=== PATIENT | male | born 1990 | race African-American/Black ===

== ENCOUNTER 2016-06-20 18:45 | Emergency (ER) | payer SELFPAY ==
[~2016-06-20] VITALS: Ht 175.3 cm; Wt 129.3 kg
[2016-06-20 19:30] VITALS: BP 150/81
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
[2016-06-20] MEDS ORDERED: CYCL10TA2 PO (20:11)
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
== END 2016-06-20 20:19 | disposition home or self-care (01) ==
LOC: ER 18:45
DX: R68.84 Jaw pain (principal); Y08.89XA Assault by other specified means, initial encounter; Y93.89 Activity, other specified; Y99.8 Other external cause status; Y92.89 Other specified places as the place of occurrence of the external cause
CPT/HCPCS: 70450; 70486; 99284-25

== ENCOUNTER 2018-01-21 11:00 | Emergency (ER) | payer SELFPAY ==
[~2018-01-21] VITALS: Ht 172.7 cm; Wt 149.7 kg
[~2018-01-21 11:00] MED LIST: CYCL10TA2 PO; IBUP-1007 PO
[2018-01-21 11:29] VITALS: BP 158/89
[2018-01-21] MEDS ORDERED: ORPHENADRINE CITRATE 60 MG/2 ML VIAL. IM ONE (12:00)
[2018-01-21] MEDS ORDERED: KETOROLAC 30 MG/ML VIAL. IM ONE (12:00)
[2018-01-21] MEDS ORDERED: NAPR-514 PO (12:54)
[2018-01-21] MEDS ORDERED: CYCL10TA2 PO (12:54)
--- NOTE | 2018-01-21 12:54 | PHYS DOC ---
Past Medical History Past Medical History: Hypertension Past Surgical History: No Surgical History Additional Past Surgical Histo: "Ears" Alcohol Use: None Drug Use: None Adult General Chief Complaint Chief Complaint: LOWER BACK PAIN OR INJURY HPI HPI Patient is a 27 year old male who presents to the emergency room with complaints of low back pain and neck pain for the last 2 days. He states he has been doing a lot of heavy lifting at work. He rates his pain as 8 or 9 out of 10 on the pain scale. He denies any numbness, tingling, weakness, or any known injury. He states he has a history of chronic back pain and he is not taking any medications. He denies any allergies to medications. Review of Systems Review of Systems Constitutional: Denies fever or chills [] Respiratory: Denies cough or shortness of breath [] Musculoskeletal: Reports low back pain and neck pain, denies any known injury or joint pain [] Integument: Denies rash or skin lesions [] Neurologic: Denies headache, focal weakness or sensory changes [] Current Medications Current Medications Current Medications Medications (Trade) Dose Ordered Sig/Christiana Start Time Stop Time Status Last Admin Dose Admin Ketorolac Tromethamine (Toradol 30mg Vial) 30 mg 1X ONCE 01/21/18 12:00 01/21/18 12:01 DC 01/21/18 12:14 30 MG Orphenadrine Citrate (Norflex) 60 mg 1X ONCE 01/21/18 12:00 01/21/18 12:01 DC 01/21/18 12:12 60 MG Allergies Allergies Allergies Coded Allergies Type Severity Reaction Last Updated Verified No Known Drug Allergies 06/09/13 No Physical Exam Physical Exam Constitutional: Well developed, well nourished, no acute distress, non-toxic appearance, obese [] HENT: Normocephalic, atraumatic, bilateral external ears normal, nose normal. [] Eyes: PERRLA, conjunctiva normal, no discharge. [] Neck: Normal range of motion, no bony tenderness, supple, no stridor, chin to chest normal. [] Skin: Warm, dry, no erythema, no rash. [] Back: No bony tenderness, no CVA tenderness. [] Extremities: No tenderness, no cyanosis, no clubbing, ROM intact, no edema. [] Neurologic: Alert and oriented X 3, normal motor function, normal sensory function, no focal deficits noted. [] Psychologic: Affect normal, judgement normal, mood normal. [] Current Patient Data Vital Signs Vital Signs Date Time Temp Pulse Resp B/P (MAP) Pulse Ox O2 Delivery O2 Flow Rate FiO2 01/21/18 11:29 98.1 100 20 158/89 (112) 96 Room Air 98.1 EKG EKG [] Radiology/Procedures Radiology/Procedures [] Course & Med Decision Making Course & Med Decision Making Pertinent Labs and Imaging studies reviewed. (See chart for details) Patient is a 27-year-old male who the emergency room today with complaints of low back pain and neck tightness after lifting heavy objects at work over the last 2 days. VSS, patient was given 60 mg of orphenadrine IM and 30 mg of Toradol IM. He reported relief of his symptoms after these medications. Prescriptions for naproxen and Flexeril were written. Patient verbalized an understanding of home care, medications, follow-up, and return to ED instructions and was in agreement with the plan of care. [] Dragon Disclaimer Dragon Disclaimer This electronic medical record was generated, in whole or in part, using a voice recognition dictation system. Departure Departure Impression: Primary Impression: Back pain Disposition: 01 HOME, SELF-CARE Condition: IMPROVED Referrals: NO PCP (PCP) Patient Instructions: Back Pain, Adult, [id number] Additional Instructions: Fill the prescriptions and use as directed. Activity as tolerated. Off work for the next 1-2 days. Follow-up with your primary care doctor in the next 1-2 days. Return to the emergency room if your symptoms worsen. Scripts Naproxen (NAPROXEN) 500 Mg Tablet 500 MG PO BID for 10 Days, #20 TAB 0 Refills Prov: ROBERT CAREY [employer]OL EXECUTIVE 01/21/18 Cyclobenzaprine Hcl (CYCLOBENZAPRINE HCL) 10 Mg Tablet 10 MG PO TID for 7 Days, #21 TAB 0 Refills Prov: ROBERT CAREY [employer] CONTROL EXECUTIVE 01/21/18 Problem Qualifiers Primary Impression: Back pain Back pain location: low back pain Chronicity: unspecified Back pain laterality: bilateral Sciatica presence: without sciatica Qualified Codes: M54.5 - Low back pain ROBERT CAREY [employer] CONTROL EXECUTIVE Jan 21, 2018 12:54
== END 2018-01-21 13:22 | disposition home or self-care (01) ==
LOC: ER 11:00
DX: M54.5 Low back pain (principal); M54.2 Cervicalgia; G89.29 Other chronic pain; I10 Essential (primary) hypertension; X50.0XXA Overexertion from strenuous movement or load, initial encounter; Y93.89 Activity, other specified; Y92.69 Other specified industrial and construction area as the place of occurrence of the external cause; Y99.0 Civilian activity done for income or pay
CPT/HCPCS: 96372; 99284; J1885; J2360

== ENCOUNTER 2019-04-23 16:43 | Emergency (ER) | payer SELFPAY ==
[~2019-04-23] VITALS: Ht 175.3 cm; Wt 153.3 kg
[~2019-04-23 16:43] MED LIST changes: +NAPR-514 PO
--- NOTE | 2019-04-23 18:03 | RAD ---
EXAM: Chest and right ribs, 4 views. HISTORY: Pain. COMPARISON: None. FINDINGS: A frontal view of the chest and 3 views of the right ribs are obtained. There is no infiltrate, pleural effusion or pneumothorax. The heart is normal in size. No displaced rib fracture is seen. IMPRESSION: No acute pulmonary or osseous finding. Electronically signed by: Sejal Rodgers MD (04/23/2019 6:00 PM) [id number]
--- NOTE | 2019-04-23 18:13 | PHYS DOC ---
Past Medical History Past Medical History: No Pertinent History, Hypertension Past Surgical History: No Surgical History Additional Past Surgical Histo: "Ears" Additional Information: SMOKES 2 CIGARETTES A DAY Alcohol Use: None Drug Use: None Adult General Chief Complaint Chief Complaint: RIB PAIN [facility] HPI Patient is a 29 year old morbidly obese AA male who presents to the emergency department with complaints of right lateral rib pain and shortness of breath for the last 3 days. Patient states he was at the gym doing some across body lifting with an exercise ball when he felt a sharp pop in his right ribs. He denies any hemoptysis, wheezing, or cough. Patient states that he has felt short of breath and that his pain increases if he coughs, takes a deep breath, moves a certain way. He currently rates pain 8 out of 10 on the pain scale, he denies any alleviating factors. All other ROS is neg unless otherwise noted in HPI. Review of Systems Review of Systems See Above Allergies Allergies Allergies Coded Allergies Type Severity Reaction Last Updated Verified No Known Drug Allergies 06/09/13 No Physical Exam Physical Exam See Above Constitutional: Well developed, well nourished, no acute distress, non-toxic appearance, obese. [] HENT: Normocephalic, atraumatic, bilateral external ears normal, nose normal. [] Eyes: PERRLA, EOMI, conjunctiva normal, no discharge. [] Neck: Normal range of motion, no stridor. [] Cardiovascular:Heart rate regular rhythm, no murmur [] Lungs & Thorax: Bilateral breath sounds clear to auscultation; R lateral lower rib tenderness to palpation, no crepitus, no sub q emphysema[] Skin: Warm, dry, no erythema, no rash. [] Extremities: No cyanosis, no clubbing, ROM intact, no edema. [] Neurologic: Alert and oriented X 3, no focal deficits noted. [] Psychologic: Affect normal, judgement normal, mood normal. [] Current Patient Data Vital Signs Vital Signs Date Time Temp Pulse Resp B/P (MAP) Pulse Ox O2 Delivery O2 Flow Rate FiO2 04/23/19 16:50 98.4 102 20 156/80 (105) 96 Room Air 98.4 EKG EKG [] Radiology/Procedures Radiology/Procedures [] Course & Med Decision Making Course & Med Decision Making Pertinent Labs and Imaging studies reviewed. (See chart for details) [] Dragon Disclaimer Dragon Disclaimer This electronic medical record was generated, in whole or in part, using a voice recognition dictation system. Departure Departure Impression: Primary Impression: Rib pain on right side Additional Impression: Rib sprain Disposition: HOME, SELF-CARE Condition: STABLE Referrals: NO PCP (PCP) Patient Instructions: Muscle Strain, [id number] Additional Instructions: He may take Tylenol or ibuprofen as needed for pain. Follow-up with your primary care doctor if symptoms persist, return to the ER if symptoms worsen. 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
[2019-04-23 18:21] VITALS: BP 141/90
== END 2019-04-23 18:21 | disposition home or self-care (01) ==
LOC: ER 16:43
DX: S23.41XA Sprain of ribs, initial encounter (principal); R06.02 Shortness of breath; I10 Essential (primary) hypertension; F17.210 Nicotine dependence, cigarettes, uncomplicated; X50.0XXA Overexertion from strenuous movement or load, initial encounter; Y93.B3 Activity, free weights; Y92.39 Other specified sports and athletic area as the place of occurrence of the external cause; Y99.8 Other external cause status
CPT/HCPCS: 71101; 99284

== ENCOUNTER 2020-08-13 23:03 | Emergency (ER) | payer SELFPAY ==
[~2020-08-13] VITALS: Ht 172.7 cm; Wt 147.7 kg
[2020-08-13 23:15] VITALS: BP 183/90
--- NOTE | 2020-08-13 23:34 | PHYS DOC ---
Past Medical History Past Medical History: No Pertinent History, Hypertension Past Surgical History: No Surgical History Additional Past Surgical Histo: "Ears" Smoking Status: Current Every Day Smoker Alcohol Use: None Drug Use: None General Adult EDM: Chief Complaint: KNEE INJURY HPI: HPI: Patient is a 30 year old -[place] male with history of hypertension, obesity presents for 3-day history of left knee pain. Patient reports that the day before yesterday after he got up from his car he slipped and fell landing and injuring his left knee. Patient felt his left knee popped on both medial and lateral side. Left knee has since been swollen and very tender and painful with ROM.. Patient rates the pain currently as 9 out of 10 in severity. Patient tried icing and taking Advil with minimal reliefn. He he has trouble bearing weight on the left knee, and reports that he has to hop when he comes into the ER. Patient reports pain being constant. He denies any other injuries. Patient is the main historian. Review of Systems: Review of Systems: Review of systems: Constitutional symptoms- No fever, no chills. Eyes- No Discharge, No Visual Loss Respiratory symptoms- No shortness of breath, No wheezing, No Dyspnea on Exertion Cardiovascular Systems; No chest pain, No Palpitations, No syncope Gastrointestinal symptoms: NO abdominal pain, no nausea, no vomiting or diarrhea. Genitourinary symptoms: No dysuria. Musculoskeletal symptoms: Endorses left knee pain, and swelling. No back pain NEUROLOGICAL Symptoms: No headache, no generalized weakness; No focal Weakness Heart Score: C/O Chest Pain: No Risk Factors: Risk Factors: DM, Current or recent (<one month) smoker, HTN, HLP, family history of CAD, obesity. Risk Scores: Score 0 - 3: 2.5% MACE over next 6 weeks - Discharge Home Score 4 - 6: 20.3% MACE over next 6 weeks - Admit for Clinical Observation Score 7 - 10: 72.7% MACE over next 6 weeks - Early Invasive Strategies Allergies: Allergies: Allergies Coded Allergies Type Severity Reaction Last Updated Verified No Known Drug Allergies 06/09/13 No Physical Exam: PE: General: alert, no acute distress. Skin: warm, dry and intact. Head:: Normocephalic, atraumatic. Neck: Trachea midline. Eyes: EOMI, Normal conjunctiva, No drainage CARDIOVASCULAR: Regular rate and rhythm RESPIRATORY: No respiratory distress Back: Full range of motion. MUSCULOSKELETAL: Reduced extension and flexion of the left knee. Passive extension and flexion induced severe pain of the region covering patella, patella tendon, and tibial tuberosity. Visible edema and bruising of the anterior knee. GASTROINTESTINAL: Abdomen soft without rebound or guarding. NEUROLOGICAL: Alert and noted to person, place and time. No neurological def icits observed Psychiatric: Cooperative. Normal judgment EKG: EKG: [] Radiology/Procedures: Radiology/Procedures: [] Course & Med Decision Making: Course & Med Decision Making Pertinent Labs and Imaging studies reviewed. (See chart for details) [] Valuated for chief complaint. Work-up consisted of radiologic imaging. X- ray negative for acute fractures. Treatment included 60 Toradol IM and Ultram. Patient will be discharged home with a knee immobilizer prescription Ultram. Patient advised to take Tylenol or ibuprofen [id number]. Patient will be referred to orthopedics. Real Disclaimer: Dragplacido Disclaimer: This electronic medical record was generated, in whole or in part, using a voice recognition dictation system. Departure Departure Impression: Primary Impression: Knee pain Disposition: 01 DC HOME SELF CARE/HOMELESS Condition: STABLE Referrals: NO PCP (PCP) CLAYTON SINGLETARY MD Patient Instructions: Knee Immobilization, Knee Pain Scripts Tramadol Hcl (ULTRAM) 50 Mg Tablet 1 TAB PO PRN Q6HRS PRN for pain MDD 4 Tablet(s) for 7 Days, #28 TAB 0 Refills Prov: MINERVA PERALTA DO 08/14/20 MINERVA PERALTA DO Aug 13, 2020 23:34
[2020-08-14] MEDS ORDERED: KETOROLAC 60 MG/2 ML VIAL. IM ONE
--- NOTE | 2020-08-14 00:10 | RAD ---
EXAM: AP, oblique and lateral views of the left knee DATE: 08/13/2020 11:26 PM INDICATION: Reason: left knee injury / Spl. Instructions: / History: COMPARISON: No Prior FINDINGS: No knee joint effusion. Prepatellar soft tissue swelling. No acute fracture or dislocation. Ossificat ion of the distal patellar tendon may be seen with prior Elpidio Schlatter disease. IMPRESSION: 1. No evidence of acute fracture or dislocation. 2. Soft tissue swelling about the left knee Electronically signed by: Mina Mon MD (08/14/2020 12:08 AM) [facility]
[2020-08-14] MEDS ORDERED: TRAM-48 PO (00:20)
== END 2020-08-14 01:08 | disposition home or self-care (01) ==
LOC: ER 23:03
DX: S80.02XA Contusion of left knee, initial encounter (principal); R60.0 Localized edema; I10 Essential (primary) hypertension; F17.200 Nicotine dependence, unspecified, uncomplicated; Z98.890 Other specified postprocedural states; W01.0XXA Fall on same level from slipping, tripping and stumbling without subsequent striking against object, initial encounter; Y93.89 Activity, other specified; Y92.89 Other specified places as the place of occurrence of the external cause; Y99.8 Other external cause status
CPT/HCPCS: 29505; 73562; 96372; 99284; J1885